=== PATIENT | male | born 1980 | race African-American/Black ===

== ENCOUNTER 2023-06-14 15:38 | Inpatient (IN) | payer OTHER ==
[~2023-06-14] VITALS: Ht 182.9 cm; Wt 80.4 kg
[2023-06-14] MEDS: MINERAL OIL/PETROLATUM 120 GM CREAM TP ONE (18:38)
[2023-06-14] MEDS: DEXAMETHASONE SOD PHOS 4 MG/ML 5 ML VIAL IVP ONE (18:38)
[2023-06-14] MEDS: ONDANSETRON HCL 4 MG/2 ML VIAL IVP ONE (18:38)
[2023-06-14] MEDS: MORPHINE SULFATE 2 MG/ML SYRINGE IVP ONE (18:38)
[2023-06-14] MEDS: CeFAZolin 1 GM/DEXTROSE 50 ML IV ONE (18:39)
[2023-06-14] MEDS: SODIUM CHLORIDE 0.9% 1,000 ML IV ONE (18:39)
[2023-06-14 18:45] LABS: BASOPHILS % (AUTO) 0.7 % (0.0-2.0); EOSINOPHILS % (AUTO) 14.8 % (1.0-6.0); HEMATOCRIT 37.8 % (41-53); HEMOGLOBIN 12.3 g/dL (13.5-17.5); LYMPHOCYTES # (AUTO) 1.1 K/uL (1.0-4.8); LYMPHOCYTES % (AUTO) 13.8 % (22.0-44.0); MEAN CORPUSCULAR HEMOGLOBIN 26.5 pg (26.0-34.0); MEAN CORPUSCULAR HGB CONC 32.6 G/dL (31.0-37.0); MEAN CORPUSCULAR VOLUME 81 fL (80-100); MONOCYTES # (AUTO) 0.9 K/uL (0.1-1.0); NEUTROPHILS # (AUTO) 4.6 K/uL (1.8-7.7); NEUTROPHILS % (AUTO) 59.7 % (40.0-70.0); PLATELET COUNT (AUTO) 254 K/uL (150-450); RED BLOOD CELL COUNT(AUTO) 4.65 MIL/uL (4.50-5.90); RED CELL DISTRIBUTION WIDTH 14.7 % (11.5-14.5); WHITE BLOOD COUNT (AUTO) 7.8 K/uL (4.5-11.0)
[2023-06-14 18:54] LABS: ANION GAP 10 mmol/L (8-16); CALCIUM, TOTAL 9.5 mg/dL (8.8-10.5); CARBON DIOXIDE 28 mmol/L (22-29); CHLORIDE 103 mmol/L (98-107); CREATININE 1.07 mg/dL (0.60-1.30); GLOMERULAR FILTR. RATE CALC > 60 mL/min (>60); GLUCOSE,RANDOM 84 mg/dL (70-110); POTASSIUM 3.6 mmol/L (3.5-5.1); SODIUM SERUM 141 mmol/L (136-145); UREA NITROGEN, BLOOD 26 mg/dL (7-18)
[2023-06-14 18:59] LABS: ALANINE AMINOTRANSFERASE 40 U/L (12-78); ALBUMIN 3.2 g/dL (3.4-5.0); ALKALINE PHOSPHATASE 60 U/L (46-116); ASPARTATE AMINOTRANSFERASE 69 U/L (15-37); BILIRUBIN,TOTAL 0.4 mg/dL (0.1-1.0); TOTAL PROTEIN, SERUM 7.2 g/dL (6.4-8.2)
[2023-06-14 19:08] LABS: ERYTHROCYTE SEDIMENTATION RATE 15 MM/HR (0-15)
[2023-06-14 21:34] VITALS: BP 126/66; PULSE 74; RESP 20; TEMP 97.3
[2023-06-14] MEDS ORDERED: ZOLPIDEM TARTRATE 5 MG TABLET PO PRN (21:45)
[2023-06-14] MEDS ORDERED: MORPHINE SULFATE 2 MG/ML SYRINGE IVP PRN (21:45)
[2023-06-14] MEDS ORDERED: MAGNESIUM HYDROXIDE SUSPENSION 30 ML UDCUP PO PRN (21:45)
[2023-06-14] MEDS ORDERED: BISACODYL 10 MG RECTAL RECTAL SUPPOSITORY PR PRN (21:45)
[2023-06-14] MEDS ORDERED: ONDANSETRON HCL 4 MG/2 ML VIAL IVP PRN (21:45)
[2023-06-14] MEDS: VANCOMYCIN HCL 1.25 GM in DEXTROSE 5%-WATER 250 ML IV ONE (22:06)
[2023-06-14] MEDS: HYDROCODONE/ACETAMINOPHEN 5-325 MG TABLET PO PRN (22:12)
[2023-06-14] MEDS: HEPARIN SODIUM,PORCINE 5,000 UNITS/ML VIAL SQ SCH (23:27)
[2023-06-15 00:50] VITALS: BP 101/59; PULSE 64; RESP 18; TEMP 97.6
[2023-06-15 04:58] VITALS: BP 114/64; PULSE 71; RESP 18; TEMP 98.2
[2023-06-15 07:54] VITALS: BP 117/63; PULSE 84; RESP 18; TEMP 98
[2023-06-15] MEDS: PredniSONE 20 MG TABLET PO SCH (09:30)
[2023-06-15] MEDS: DOCUSATE SODIUM 100 MG CAPSULE PO SCH (09:30)
[2023-06-15] MEDS: PANTOPRAZOLE SODIUM 40 MG DR TABLET PO SCH (09:30)
[2023-06-15] MEDS: VANCOMYCIN HCL 1.25 GM in DEXTROSE 5%-WATER 250 ML IV SCH (12:24)
[2023-06-15 19:52] VITALS: BP 114/55; PULSE 65; RESP 18; TEMP 98
[2023-06-15] MEDS: HYDROCORTISONE 1% 30 GM OINTMENT TP SCH (19:53)
[2023-06-15] MEDS: ACETAMINOPHEN 325 MG TABLET PO PRN (19:53)
[2023-06-15] MEDS ORDERED: SODIUM CHLORIDE 0.9% 500 ML IV ONE (23:10)
[2023-06-16 00:44] VITALS: BP 107/57; PULSE 59; RESP 18; TEMP 97.8
[2023-06-16 05:14] VITALS: BP 107/59; PULSE 60; RESP 18; TEMP 97.8
[2023-06-16 07:06] LABS: ANION GAP 6 mmol/L (8-16); CARBON DIOXIDE 29 mmol/L (22-29); CHLORIDE 102 mmol/L (98-107); CREATININE 1.09 mg/dL (0.60-1.30); GLOMERULAR FILTR. RATE CALC > 60 mL/min (>60); GLUCOSE,RANDOM 84 mg/dL (70-110); POTASSIUM 3.9 mmol/L (3.5-5.1); SODIUM SERUM 137 mmol/L (136-145); UREA NITROGEN, BLOOD 24 mg/dL (7-18); VANCOMYCIN,RANDOM 16.4 mcg/mL (25.0-50.0)
[2023-06-16 09:16] VITALS: BP 95/58; PULSE 57; RESP 19; TEMP 98
[2023-06-16 11:20] VITALS: BP 106/56; PULSE 61; RESP 18; TEMP 98.1
[2023-06-16 19:54] VITALS: BP 120/66; PULSE 77; RESP 18; TEMP 99
[2023-06-16] MEDS ORDERED: SODIUM CHLORIDE 0.9% 500 ML IV ONE (21:15)
[2023-06-16] MEDS: MINERAL OIL/PETROLAT,WHT/WATER LOTION 177 ML BOTTLE TP SCH (22:25)
[2023-06-17 05:05] VITALS: BP 114/60; PULSE 60; RESP 18; TEMP 98.8
[2023-06-17 08:38] VITALS: BP 91/56; PULSE 55; RESP 18; TEMP 98
== END 2023-06-17 18:00 | DRG 603 ==
LOC: EMS 15:39 → AHU 18:31 → 5S 21:05 → 6S 06-16 11:05
PROVIDERS: ADMIT Internal Medicine; ATTEND Internal Medicine
DX: L03.114 Cellulitis of left upper limb (principal); L03.113 Cellulitis of right upper limb; L30.9 Dermatitis, unspecified; Q80.9 Congenital ichthyosis, unspecified; J30.89 Other allergic rhinitis; Z91.010 Allergy to peanuts; Z91.018 Allergy to other foods
CPT/HCPCS: 71045; 80048; 80053; 80202; 85025; 85651; 93005; 99285; J0690; J1100; J1644; J2270; J2405; J3370; J7030; J7040; J7060; 36415-L1; 36415-TC